=== PATIENT | male | born 1960 | race Caucasian/White ===

== ENCOUNTER 2017-10-31 08:12 | Inpatient (IN) | payer OTHER ==
[2017-10-31 09:39] LABS: Lactic Acid 1.7 mmol/L (0.5-2.2)
[2017-10-31 09:45] LABS: ALT (SGPT) 163 U/L (8-55); AST (SGOT) 347 U/L (5-34); Albumin 2.4 g/dL (3.5-5.0); Alkaline Phosphatase 282 U/L (40-150); Anion Gap 13 mmol/L (10-20); BUN (Urea Nitrogen) 23 mg/dL (8.4-25.7); Calc. Creatinine Clearance 0 mL/min (70-130); Calcium 8.1 mg/dL (7.8-10.44); Carbon Dioxide 17 mmol/L (22-29); Chloride 108 mmol/L (98-107); Estimated GFR-MDRD 59; Globulin 3.7 g/dL (2.4-3.5); Glucose 104 mg/dL (70-105); Protein, Total 6.1 g/dL (6.0-8.3); Sodium 133 mmol/L (136-145)
[2017-10-31 09:49] LABS: #Eosinphils 0.1 thou/uL (0.0-0.7); #Lymphocytes 0.5 thou/uL (1.20-3.40); #Monocytes 0.4 thou/uL (0.11-0.59); #Neutrophils 3.1 thou/uL (1.40-6.50); %Basophils 1.1 % (0.0-1.0); %Eosinophils 1.9 % (0.0-10.0); %Lymphocytes 12.5 % (21.0-51.0); %Monocytes 9.1 % (0.0-10.0); %Neutrophils 75.5 % (42.0-75.0); Hemoglobin 12.9 g/dL (14.0-18.0); Mean Corpuscular HGB CONC 32.7 g/dL (32.0-36.0); Mean Corpuscular Hemoglobin 33.2 pg (27.0-31.0); Mean Platelet Volume 8.1 fL (7.4-10.4); PLT Morphology Comment Appears Decreased; Platelet Count 92 thou/uL (130-400); RBC Distribution Width 14.3 % (11.5-14.5); RBC Morphology Normal; White Blood Cell (WBC) Count 4.1 thou/uL (4.8-10.8)
[2017-10-31 09:52] LABS: Troponin I Less than 0.010 ng/mL (< 0.028)
[2017-10-31] MEDS ORDERED: HumaLOG 300 UNITS/3 ML VIAL SC PRN (10:20)
[2017-10-31] MEDS ORDERED: Dextrose 5% in Water 1,000 ML IV PRN (10:20)
[2017-10-31] MEDS ORDERED: Dextrose 50% Abboject 50 ML SYRINGE SLOW IVP PRN (10:20)
[2017-10-31 13:10] LABS: Troponin I Less than 0.010 ng/mL (< 0.028)
--- NOTE | 2017-10-31 14:25 | HP ---
CHIEF COMPLAINT: Chest pain. HISTORY OF PRESENT ILLNESS: The patient is a very pleasant 57-year-old male who is an inmate who nor wyatt goes to [facility] for his treatments who presented to the hospital with chest pain. The patient sta francie that he has been having on and off chest pain; however, for the past 4 days, his chest pain has w orsened. The patient also has been complaining of some generalized abdominal pain. Denies any fever s or chills. Denies any diarrhea. The patient states that he recently had a CAT scan at [facility]; [facility], does not recall the results. The patient initially was taken to an outside facility and then was transferred here since there were no beds at [facility]. Patient had initial lab work done which indicate d elevated bilirubin of 11 and elevated LFTs. The patient also appeared to have jaundice, so he unde rwent a CT abdomen and pelvis with contrast that indicated several liver lesions and also some pulmon federica lesions. Patient also was noted to have some varicosities and also was noted to have a necrotic fat around his hernia in his abdomen. The patient stated that his symptoms have been ongoing for a w hile; however, for the past 4 days, the symptoms have gotten worse. PAST MEDICAL HISTORY: 1. History of diabetes; history of hepatitis C, unknown source; he has a history of IV drug use; he has also had blood transfusion and he also has tattoos. 2. Hypertension. 3. Cirrhosis. PAST SURGICAL HISTORY: The patient says he has had some surgery in his left arm for a work accident related and he has had several cervical and back surgeries and he has had a cyst that was removed fro m his abdomen. SOCIAL HISTORY: The patient used to smoke cigars occasionally; however, has not smoked anything for the past 4 years. Alcohol use; he used to drink alcohol heavily in the past; however, currently does not drink any alcohol. He also has a history of cocaine use; however, currently does not. FAMILY HISTORY: The patient states that his mother at age of 67, she is a dialysis patient and also had cardiac problems, but he does have living sisters. MEDICATIONS: As of the following; patient is on lactulose. I do not have the exact doses, but he is on lactulose, lisinopril, metformin, nitro and spironolactone. Cardiac newby, the patient has never had any echo or any stress test or any cardiac catheterization. PHYSICAL EXAMINATION: VITAL SIGNS: Temperature of 98.8, blood pressure was 100/60, heart rate was in the 80s-90s and he is 98% on room air. GENERAL: He is awake, alert, appears jaundiced. HEENT: Normocephalic, atraumatic. He does have significant jaundice in his conjunctival area. LUNGS: Clear to auscultation. No rhonchi or wheezes noted. CHEST: S1 and S2 present. No murmurs, rubs or gallops. Chest wall; patient has significant pain up on palpation to his right-sided chest wall and also left-sided chest wall upon palpation. ABDOMEN: Soft, mildly distended. He does have an umbilical hernia. He does have significant pain u dara palpation of his right upper quadrant and also right lower and left lower quadrant. I am unable to feel any hepatomegaly or splenomegaly. EXTREMITIES: He has got mild 1+ lower extremity edema. SKIN: He appears very jaundiced. No petechial rashes were noted. NEUROLOGIC: Neurovascular newby, no focal deficits were noted. LABORATORY DATA AND IMAGING DATA: Laboratory results are as of following: WBC 4.1, hemoglobin of 12 .9, hematocrit of 39.6, platelets of 92. He did have chemistry; sodium of 133, potassium of 5.0, BUN of 22, creatinine 1.26. His bilirubin is 11, AST of 347, ALT of 157, alkaline phosphatase of 282. His INR at the outside hospital was 1.5. His troponin x3 were negative. Lactic acid was 1.7. He di d have an EKG done which did show some Q-waves in II, III, and AVF however, no T-wave inversions were noted. ASSESSMENT AND PLAN: The patient is a very pleasant 57-year-old male who presents to the hospital wi th complaints of chest pain. 1. Atypical chest pain. The patient's troponin x3 were negative. EKG does have some old Q-waves. We will get an echocardiogram for further evaluation. Patient's pain is not substernal. It is very on the sides around his rib area and it is reproducible on palpation. 2. Liver lesions with pulmonary lesions. This could be liver carcinoma given his history of hepatit is C. We will check an alpha fetoprotein. We will check CA 19-9. I did speak with the radiologist for possible biopsy. However, given his significant varicosities, they were hesitant and recommended to do an MRI for further evaluation to know if all the lesions seem to be concerning for malignancy or there were also some liver nodules for better diagnostic purposes. We will go ahead and order an MRI with and without contrast. We will keep patient n.p.o. for now. Also, GI has been consulted for this. 3. Hernia with fat necrosis. Upon speaking with the radiologist, he also mentioned that the patient had significant fat necrosis that was significant around his umbilical hernia and he did have some p ain. He does not have any bowel that is entrapped in it. I will get a surgical consultation just to make sure that it is not something urgent or emergent. 4. Diabetes. We will put the patient on sliding scale insulin. We will hold metformin for now. 5. History of cirrhosis. We will hold off on spironolactone and the lactulose for now. The patient normally runs low blood pressure according to him; however, his maps have been greater than 65. The re are no signs of infections and also we will get records from [facility] for further evaluation. 6. Elevated LFTs including bilirubin. This is most likely secondary to his underlying liver disease . Also, the patient stated that he did have a recent CAT scan at [facility]. We will await results. 7. Deep venous thrombosis prophylaxis. We will put the patient on sequential compression devices.
[2017-10-31] MEDS: Dextrose 5 % And 0.9 % NaCl 1,000 ML IV SCH (14:27)
[2017-10-31] MEDS ORDERED: Heparin 5,000 UNITS/ML VIAL SC SCH (15:00)
[2017-10-31 15:24] LABS: INR-International Normal Ratio 1.3; Prothrombin Time 16.1 SEC (12.0-14.7)
[2017-10-31 15:25] LABS: PTT 34.4 SEC (22.9-36.1)
[2017-10-31 15:42] LABS: CKMB 0.8 ng/mL (0-6.6); Troponin I Less than 0.010 ng/mL (< 0.028)
--- NOTE | 2017-10-31 16:05 | HP ---
Christopher Pascual is a prisoner, 5 years incarcerated, presents to the emergency room with chest pain, acc ompanied by care home guards. Patient apparently had a CAT scan demonstrating a hernia. He has a histo ry of hepatocellular carcinoma with pulmonary mets. He has a history of hepatitis C. Patient denies having any abdominal pain. Denies any nausea or vomiting. A portion of the CAT scan was performed elsewhere, it is not available. MEDICATIONS: Furosemide 20 mg a day, lactulose daily, lisinopril 20 mg daily, metformin 500 mg twice a day, nitroglycerin p.r.n., spironolactone twice a day. PAST MEDICAL HISTORY: Hepatitis C that has never been treated. He states he used to be type 1 diabe kenji, but now has type 2 diabetes. Diagnosis of hepatocellular carcinoma, [facility] I am [facility]. He reports metastasis to the lungs. PAST SURGICAL HISTORY: He had some traumatic injury to his right groin and thigh, requiring a drain for a period of time. SOCIAL HISTORY: Tobacco: None while incarcerated 5 years. No use of tobacco prior to that. Alcoho l abuse prior to incarceration 5 years ago. PHYSICAL EXAMINATION: VITAL SIGNS: Weight 205 pounds, blood pressure 110/79, heart rate 82, respirations 21, temperature 9 7.8 degrees. GENERAL: The patient is in shackles. HEAD, EARS, EYES, NOSE, AND THROAT: Unremarkable. LUNGS: Clear to auscultation. CARDIAC: Regular rate and rhythm without murmur, rub, or gallop. ABDOMEN: Soft. Fluid wave. Umbilical hernia present, easily reducible. EXTREMITIES: Palpable pedal pulses. LABORATORY DATA: White count 4, hemoglobin 12. Sodium 133, chloride 108, carbon dioxide 17, bilirub in of 11, AST 347, ALT 163, alkaline phosphatase 282. ASSESSMENT AND PLAN: Umbilical hernia. This is reducible. This is not the source of any discomfort . I do not think the patient needs further evaluation for this hernia. There is no indication for s urgical intervention. Patient has hepatitis C, hepatocellular carcinoma history, metastasis to the l angela, ascites on exam, and his jaundice. I would recommend checking coagulation studies and alpha fet oprotein. I will follow him with you. There is no indication for surgical intervention at this time .
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
[2017-10-31] MEDS: hydrOXYzine 25 MG TAB PO PRN (18:39)
[2017-10-31] MEDS: Famotidine 20 MG TAB PO SCH (19:52)
[2017-10-31] MEDS: Docusate 100 MG CAP PO SCH (19:53)
[2017-11-01] MEDS: Dextrose 5 % And 0.9 % NaCl 1,000 ML IV SCH ×3 (04:40→17:44)
[2017-11-01 05:25] LABS: ALT (SGPT) 160 U/L (8-55); AST (SGOT) 316 U/L (5-34); Albumin 2.3 g/dL (3.5-5.0); Alkaline Phosphatase 262 U/L (40-150); Anion Gap 9 mmol/L (10-20); BUN (Urea Nitrogen) 16 mg/dL (8.4-25.7); Calc. Creatinine Clearance 101 mL/min (70-130); Calcium 8.1 mg/dL (7.8-10.44); Carbon Dioxide 19 mmol/L (22-29); Chloride 109 mmol/L (98-107); Estimated GFR-MDRD 69; Globulin 3.5 g/dL (2.4-3.5); Glucose 142 mg/dL (70-105); Potassium 4.3 mmol/L (3.5-5.1); Protein, Total 5.8 g/dL (6.0-8.3); Sodium 133 mmol/L (136-145)
[2017-11-01 05:33] LABS: #Eosinphils 0.1 thou/uL (0.0-0.7); #Lymphocytes 0.5 thou/uL (1.20-3.40); #Monocytes 0.6 thou/uL (0.11-0.59); #Neutrophils 3.4 thou/uL (1.40-6.50); %Basophils 0.3 % (0.0-1.0); %Eosinophils 2.3 % (0.0-10.0); %Lymphocytes 11.5 % (21.0-51.0); %Monocytes 12.9 % (0.0-10.0); Hemoglobin 12.6 g/dL (14.0-18.0); Mean Corpuscular HGB CONC 32.9 g/dL (32.0-36.0); Mean Corpuscular Hemoglobin 33.4 pg (27.0-31.0); Mean Platelet Volume 9.2 fL (7.4-10.4); Platelet Count 87 thou/uL (130-400); RBC Distribution Width 14.3 % (11.5-14.5); Red Blood Cell (RBC) Count 3.77 mill/uL (4.70-6.10); White Blood Cell (WBC) Count 4.7 thou/uL (4.8-10.8)
[2017-11-01] MEDS: Famotidine 20 MG TAB PO SCH ×2 (08:14→20:04)
[2017-11-01] MEDS: Docusate 100 MG CAP PO SCH ×2 (08:14→20:03)
[2017-11-01] MEDS: hydrOXYzine 25 MG TAB PO PRN ×3 (08:14→20:06)
[2017-11-01] MEDS ORDERED: Prevnar 13-Val Conj/PF 0.5 ML SYRINGE IM ONE (09:00)
--- NOTE | 2017-11-01 09:01 | PRG ---
DATE OF SERVICE: 11/01/2017 SUBJECTIVE: The patient complaining of chest and abdominal pain. He is also hungry and wants to eat . OBJECTIVE: VITAL SIGNS: Temperature 99.7, pulse 89, respiratory rate 20, blood pressure 102/55. CHEST: Clear. CARDIOVASCULAR: Regular rate and rhythm. ABDOMEN: Soft, nontender, without organomegaly or masses. LABORATORY DATA: Significant for sodium of 133, CO2 19, glucose 142, total bilirubin 12, AST 316, AL T 160, alkaline phosphatase 262, albumin 23, alpha fetoprotein is 25,830. ASSESSMENT: 1. Metastatic hepatocellular carcinoma. 2. Cirrhosis. 3. Hepatitis C. RECOMMENDATIONS: 1. Oncology opinion. 2. At this point, I do not think there is any need for the MRI scheduled today so I will cancel that .
[2017-11-01] MEDS: oxyCODONE 5 MG TAB PO PRN ×3 (10:18→20:04)
--- NOTE | 2017-11-01 11:35 | PDOC.PN ---
- Subjective Encounter Start Date: 11/01/17 Encounter Start Time: 10:00 Subjective: pt up in bed compalins of chest pain to his sides - Objective Resuscitation Status: Resuscitation Status FULL:Full Resuscitation Vital Signs & Weight: Vital Signs (12 hours) Temp Pulse Resp BP Pulse Ox 11/01/17 08:00 98.1 F 86 20 100/59 L 95 11/01/17 04:00 99.7 F H 89 20 102/55 L 94 L 11/01/17 00:00 20 Weight Weight 207 lb 3.2 oz I&O: 10/31/17 11/01/17 11/02/17 06:59 06:59 06:59 Intake Total 2235 Output Total 1325 300 Balance 910 -300 Result Diagrams: 11/01/17 04:20 11/01/17 04:19 Additional Labs: Accuchecks 11/01/17 11/01/17 10/31/17 10:47 05:57 20:58 POC Glucose 194 H 135 H 164 H 10/31/17 16:56 POC Glucose 107 Phys Exam - Physical Examination icteric sclera, pt appears jaundice Neck: no nodes, no JVD, supple, full ROM Respiratory: no wheezing, no rales, no rhonchi, wheezing present, clear to auscultation bilateral Cardiovascular: RRR, no significant murmur, no rub, gallop, irregular pain on palpation of chest wall Gastrointestinal: soft, non-tender, no distention, positive bowel sounds Dx/Plan (1) Atypical chest pain Code(s): R07.89 - OTHER CHEST PAIN Status: Acute (2) Hepatocellular carcinoma Code(s): C22.0 - LIVER CELL CARCINOMA Status: Acute (3) Elevated bilirubin Code(s): R17 - UNSPECIFIED JAUNDICE Status: Acute (4) Hepatitis C Code(s): B19.20 - UNSPECIFIED VIRAL HEPATITIS C WITHOUT HEPATIC COMA Status: Acute - Plan will get cta chest, trops negative -: oncology consulted. Pt's AFP is elevated -: spoke with pt about next of kin and he said sister -: will ask guard to get info. Palliative consulted. -: will start pt on po pain meds * . Review of Systems - Review of Systems Cardiovascular: chest pain Gastrointestinal: negative: Nausea, Vomiting, Abdominal Pain, Diarrhea, Constipation, Melena, Hematochezia, Other Genitourinary: negative: Dysuria, Frequency, Incontinence, Hematuria, Retention , Other - Medications/Allergies Allergies/Adverse Reactions: Allergies Allergy/AdvReac Type Severity Reaction Status Date / Time Iodine and Iodide Containing Allergy Itch Verified 10/31/17 12:11 Produc Medications: Current Medications Dextrose/Water (Dextrose 50%) 25 gm SLOW IVP PRN PRN PRN Reason: Hypoglycemia Docusate Sodium (Colace) 100 mg PO BID [facility] Last Admin: 11/01/17 08:14 Dose: Not Given Famotidine (Pepcid) 20 mg PO BID [facility] Last Admin: 11/01/17 08:14 Dose: 20 mg Glucagon (Glucagon) 1 mg IM PRN PRN PRN Reason: Hypoglycemia Hydroxyzine HCl (Atarax) 25 mg PO TID PRN PRN Reason: Itching Last Admin: 11/01/17 08:14 Dose: 25 mg Dextrose/Water (D5w) 1,000 mls @ 0 mls/hr IV .Q0M PRN PRN Reason: Hypoglycemia Dextrose/Sodium Chloride (D5 0.9% Ns) 1,000 mls @ 75 mls/hr IV .[id number] [facility] Last Admin: 11/01/17 04:40 Dose: 1,000 mls Insulin Human Lispro (Humalog) 0 units SC .MILD SLIDING SCALE PRN PRN Reason: Mild Correctional Scale Oxycodone HCl (Oxycodone Ir) 5 mg PO Q4H PRN PRN Reason: Pain Last Admin: 11/01/17 10:18 Dose: 5 mg Sodium Chloride (Flush - Normal Saline) 10 ml IVF Q12HR [facility] Sodium Chloride (Flush - Normal Saline) 10 ml IVF PRN PRN PRN Reason: Saline Flush
[2017-11-01 12:52] VITALS: BMI 31.5
--- NOTE | 2017-11-01 13:35 | CON ---
DATE OF CONSULTATION: 11/01/2017 REASON FOR CONSULTATION: Suspicion of liver cancer. HISTORY OF PRESENT ILLNESS: A 57-year-old male with history of hepatitis C and cirrhosis, currently an inmate, presenting with chest pain that has been on and off and worsening for the past few days. The patient also complains of generalized abdominal pain and worsening fatigue. He spends most of his days in his cell in bed reading, though he does say he tries to do very, very light workouts in his cell. He states he has not noticed himself with worsening jaundice. He does note occasional coughing up or spitting up of blood in small amounts. He states his abdomen has been swelling and is very concerned about a hernia in his abdomen that is causing him pain. The patient states he was first diagnosed with hepatitis C and cirrhosis at age 26 which he believes he got from tattoos. He states he used IV heroin to help with the pain , but he did not use this until after he was diagnosed with hepatitis C. PAST MEDICAL HISTORY: Hepatitis C, cirrhosis, IV drug abuse, hypertension. PAST SURGICAL HISTORY: Left arm surgery, cervical and back surgeries in the past and a cyst removal from his abdomen. SOCIAL HISTORY: Former cigar smoker, former heavy alcohol abuse. Former cocaine and heroin abuse. FAMILY HISTORY: Kidney disease in mother. MEDICATIONS: Reviewed. PHYSICAL EXAMINATION: VITAL SIGNS: Temperature 98.1, pulse 86, respirations 20, satting 95% on room air, and blood pressure 100/59. GENERAL: The patient is lying in bed in no acute distress. HEENT: Normocephalic, atraumatic. Scleral icterus present. LUNGS: Clear to auscultation. CARDIOVASCULAR: Normal S1, S2, without murmurs, rubs or gallops. ABDOMEN: Soft with mild distention and some ascites with mild tenderness to palpation diffusely. EXTREMITIES: Mild swelling in bilateral lower extremities. SKIN: Diffuse jaundice. NEUROLOGIC: Nonfocal. PSYCHIATRIC: Awake, alert and oriented x3. Appears sad and anxious. LABORATORY DATA: White blood cells 4.7, hemoglobin 12.6, MCV 102, platelets 87. PT 16.1, INR 1.3, PTT 34.4. Sodium 133, BUN 16, creatinine 1.1, total bilirubin 12.0, AST 316, ALT 160, alkaline phosphatase 262. Troponin negative x2. Albumin 2.3. Alpha fetoprotein 25,830.5, CA 19-9 antigen 79. IMAGING DATA: Previous CT scan showed numerous bilateral lung nodules suggestive of metastatic disease along with a subcentimeter borderline mediastinal cardiophrenic and internal mammary lymph nodes. Extensive esophageal varices. CT abdomen and pelvis showed findings consistent with diffuse infiltrate of hepatocellular carcinoma, replacing most of the liver parenchyma along with cirrhosis with gastroesophageal varices, splenomegaly, large splenic varices and splenorenal shunt, tumor thrombus in the portal vein and branches were appreciable with cavernous transformation of the portal venous system. Large ventral abdominal hernia containing significant stranding unchanged, bland thrombus in the superior mesenteric vein branch. Cholelithiasis, numerous pulmonary nodules. ASSESSMENT AND PLAN: A 57-year-old male with longstanding history of cirrhosis secondary to untreated hepatitis C, presenting with chest pain, abdominal pain, and significantly worsening performance status and found to have hepatocellular carcinoma metastatic to lungs and lymph nodes with tumor thrombus. The patient's CT scan is suggestive of HCC, which in the setting of cirrhosis and extremely elevated AFP confirms the diagnosis and a biopsy is not necessary. The patient has stage 4 HCC and has end-stage cirrhosis Child-Medina C. The two first line treatments for advanced HCC include sorafenib and Lenvatinib. Sorafenib is only given to patients with Child-Medina A and possibly B disease, but not C. Lenvatinib is an option at a lower dosing and when compared to sorafenib in a head to head phase 3 trial it was noninferior and better tolerated. This would be the only option for treatment for Mr. Pascual. The patient's performance status is ECOG 2, possibly 3. I would recommend a trial of Lenvatinib if he is able to get this within the long-term system. If he is unable to get this treatment, then would recommend hospice. We will sign off. Thank you for this consult. [facility]
[2017-11-02] MEDS: oxyCODONE 5 MG TAB PO PRN ×3 (02:17→20:44)
[2017-11-02] MEDS: Dextrose 5 % And 0.9 % NaCl 1,000 ML IV SCH ×2 (06:01→20:52)
[2017-11-02] MEDS: hydrOXYzine 25 MG TAB PO PRN (08:18)
[2017-11-02] MEDS: Docusate 100 MG CAP PO SCH ×2 (08:18→20:44)
[2017-11-02] MEDS: Famotidine 20 MG TAB PO SCH ×2 (08:18→20:44)
[2017-11-02] MEDS ORDERED: diphenhydrAMINE 50 MG/ML VIAL IVP PRN (09:58)
[2017-11-02] MEDS: hydrOXYzine 25 MG TAB PO SCH ×2 (15:11→20:47)
--- NOTE | 2017-11-02 16:46 | PDOC.PN ---
- Subjective Encounter Start Date: 11/02/17 Encounter Start Time: 07:20 Pt seen for followup re: hepatocellular carcinoma. Reports itching, no chest pain. - Objective Resuscitation Status: Resuscitation Status FULL:Full Resuscitation MAR Reviewed: Yes Vital Signs & Weight: Vital Signs (12 hours) Temp Pulse Resp BP Pulse Ox 11/02/17 15:14 98.8 F 98 18 100/53 L 96 11/02/17 12:03 98.0 F 96 17 105/56 L 95 11/02/17 08:13 98.0 F 96 16 104/57 L 97 Weight Admit Weight 207 lb 3.2 oz Weight 207 lb 3.2 oz I&O: 11/01/17 11/02/17 11/03/17 06:59 06:59 06:59 Intake Total 2235 2969 500 Output Total 1325 2450 574 Balance 910 519 -74 Result Diagrams: 11/01/17 04:20 11/01/17 04:19 Additional Labs: Accuchecks 11/02/17 11/02/17 11/01/17 11:06 05:23 20:18 POC Glucose 121 H 107 190 H 11/01/17 16:55 POC Glucose 117 H EKG Reviewed by me: Yes (Tele: NSR) Phys Exam - Physical Examination Constitutional: NAD HEENT: moist MMs, oral pharynx no lesions, 2+ tonsils scleral icterus Neck: no nodes, no JVD, supple, full ROM Respiratory: no wheezing, no rales, no rhonchi, clear to auscultation bilateral Cardiovascular: RRR, no rub S1, S2 Gastrointestinal: soft, non-tender, no distention, positive bowel sounds umbilical hernia Neurological: moves all 4 limbs Psychiatric: normal affect Deviation from normal: Oriented to person andplace, not to time Dx/Plan (1) Hepatocellular carcinoma Code(s): C22.0 - LIVER CELL CARCINOMA Status: Acute Comment: Stage 4. Awaiting transfer to [facility], will need treatment with levatinib. (2) Itching Code(s): L29.9 - PRURITUS, UNSPECIFIED Status: Acute (3) Abnormal LFTs Code(s): R94.5 - ABNORMAL RESULTS OF LIVER FUNCTION STUDIES Status: Acute Comment: repeat blood work tomorrow (4) Hepatitis C Code(s): B19.20 - UNSPECIFIED VIRAL HEPATITIS C WITHOUT HEPATIC COMA Status: Chronic Qualifiers: Viral hepatitis chronicity: chronic (5) Atypical chest pain Code(s): R07.89 - OTHER CHEST PAIN Status: Resolved Comment: Improved - Plan * . Review of Systems - Review of Systems Constitutional: weakness, other (itching). negative: fever, chills, sweats, malaise Respiratory: negative: Cough, Shortness of Breath, SOB with Excertion, Pleuritic Pain, Wheezing Cardiovascular: negative: chest pain, palpitations, orthopnea, paroxysmal nocturnal dyspnea, edema, light headedness Gastrointestinal: negative: Nausea, Vomiting, Abdominal Pain, Diarrhea, Constipation, Melena, Hematochezia Genitourinary: negative: Dysuria, Frequency, Incontinence, Hematuria, Retention Skin: Other (itching) Neurological: Weakness. negative: Numbness, Incoordination, Change in Speech, Confusion, Seizures - Medications/Allergies Allergies/Adverse Reactions: Allergies Allergy/AdvReac Type Severity Reaction Status Date / Time Iodine and Iodide Containing Allergy Itch Verified 10/31/17 12:11 Produc Medications: Current Medications Dextrose/Water (Dextrose 50%) 25 gm SLOW IVP PRN PRN PRN Reason: Hypoglycemia Diphenhydramine HCl (Benadryl) 25 mg IVP Q8H PRN PRN Reason: Itching Docusate Sodium (Colace) 100 mg PO BID [facility] Last Admin: 11/02/17 08:18 Dose: 100 mg Famotidine (Pepcid) 20 mg PO BID [facility] Last Admin: 11/02/17 08:18 Dose: 20 mg Glucagon (Glucagon) 1 mg IM PRN PRN PRN Reason: Hypoglycemia Hydroxyzine HCl (Atarax) 25 mg PO TID [facility] Last Admin: 11/02/17 15:11 Dose: 25 mg Dextrose/Water (D5w) 1,000 mls @ 0 mls/hr IV .Q0M PRN PRN Reason: Hypoglycemia Dextrose/Sodium Chloride (D5 0.9% Ns) 1,000 mls @ 75 mls/hr IV .[id number] [facility] Last Admin: 11/02/17 06:01 Dose: 1,000 mls Insulin Human Lispro (Humalog) 0 units SC .MILD SLIDING SCALE PRN PRN Reason: Mild Correctional Scale Oxycodone HCl (Oxycodone Ir) 5 mg PO Q4H PRN PRN Reason: Pain Last Admin: 11/02/17 08:18 Dose: 5 mg Sodium Chloride (Flush - Normal Saline) 10 ml IVF Q12HR [facility] Last Admin: 11/02/17 15:11 Dose: 10 ml Sodium Chloride (Flush - Normal Saline) 10 ml IVF PRN PRN PRN Reason: Saline Flush
[2017-11-03] MEDS: oxyCODONE 5 MG TAB PO PRN ×4 (02:18→20:28)
[2017-11-03] MEDS ORDERED: diphenhydrAMINE 25 MG CAP PO PRN (03:46)
[2017-11-03] MEDS: Docusate 100 MG CAP PO SCH ×2 (09:24→20:21)
[2017-11-03] MEDS: hydrOXYzine 25 MG TAB PO SCH ×4 (09:25→20:21)
[2017-11-03] MEDS: Famotidine 20 MG TAB PO SCH ×2 (09:25→20:22)
[2017-11-03] MEDS: Dextrose 5 % And 0.9 % NaCl 1,000 ML IV SCH (10:50)
[2017-11-03] MEDS ORDERED: diphenhydrAMINE 50 MG/ML VIAL IVP SCH (11:30)
--- NOTE | 2017-11-03 11:32 | PDOC.PN ---
- Subjective Encounter Start Date: 11/03/17 Encounter Start Time: 07:40 Pt seen for followup re: hepatocellular cancer. Denies chest pain. Pruritus still present. Did not sleep well. - Objective Resuscitation Status: Resuscitation Status FULL:Full Resuscitation MAR Reviewed: Yes Vital Signs & Weight: Vital Signs (12 hours) Temp Pulse Resp BP Pulse Ox 11/03/17 07:37 98.2 F 102 H 17 114/61 97 11/03/17 04:00 98.3 F 99 16 106/65 95 Weight Admit Weight 207 lb 3.2 oz Weight 207 lb 3.2 oz I&O: 11/02/17 11/03/17 11/04/17 06:59 06:59 06:59 Intake Total 2969 2870 Output Total 2450 2189 Balance 519 681 Result Diagrams: 11/01/17 04:20 11/01/17 04:19 Additional Labs: Accuchecks 11/03/17 11/03/17 11/02/17 10:50 05:48 20:40 POC Glucose 138 H 106 145 H 11/02/17 11/02/17 16:54 11:06 POC Glucose 116 H 121 H EKG Reviewed by me: Yes (Tele: NSR) Phys Exam - Physical Examination Constitutional: NAD HEENT: moist MMs sclerae icteric Neck: supple Respiratory: clear to auscultation bilateral Cardiovascular: RRR Gastrointestinal: soft Neurological: moves all 4 limbs Psychiatric: normal affect Deviation from normal: cutaneous icterus Dx/Plan (1) Hepatocellular carcinoma Code(s): C22.0 - LIVER CELL CARCINOMA Status: Acute Comment: Waiting for a bed at [facility], will need treatment with levatinib. (2) Itching Code(s): L29.9 - PRURITUS, UNSPECIFIED Status: Acute Comment: Increase frequency of Atarax (3) Abnormal LFTs Code(s): R94.5 - ABNORMAL RESULTS OF LIVER FUNCTION STUDIES Status: Acute Comment: check labs today (4) Hepatitis C Code(s): B19.20 - UNSPECIFIED VIRAL HEPATITIS C WITHOUT HEPATIC COMA Status: Chronic Qualifiers: Viral hepatitis chronicity: chronic Comment: now has HCC (5) Atypical chest pain Code(s): R07.89 - OTHER CHEST PAIN Status: Resolved Comment: Improved - Plan * . Review of Systems - Medications/Allergies Allergies/Adverse Reactions: Allergies Allergy/AdvReac Type Severity Reaction Status Date / Time Iodine and Iodide Containing Allergy Itch Verified 10/31/17 12:11 Produc Medications: Current Medications Dextrose/Water (Dextrose 50%) 25 gm SLOW IVP PRN PRN PRN Reason: Hypoglycemia Diphenhydramine HCl (Benadryl) 50 mg IVP ONE [facility] Docusate Sodium (Colace) 100 mg PO BID [facility] Last Admin: 11/03/17 09:24 Dose: 100 mg Famotidine (Pepcid) 20 mg PO BID [facility] Last Admin: 11/03/17 09:25 Dose: 20 mg Glucagon (Glucagon) 1 mg IM PRN PRN PRN Reason: Hypoglycemia Hydroxyzine HCl (Atarax) 25 mg PO QID [facility] Dextrose/Water (D5w) 1,000 mls @ 0 mls/hr IV .Q0M PRN PRN Reason: Hypoglycemia Dextrose/Sodium Chloride (D5 0.9% Ns) 1,000 mls @ 75 mls/hr IV .[id number] [facility] Last Admin: 11/03/17 10:50 Dose: 1,000 mls Insulin Human Lispro (Humalog) 0 units SC .MILD SLIDING SCALE PRN PRN Reason: Mild Correctional Scale Oxycodone HCl (Oxycodone Ir) 5 mg PO Q4H PRN PRN Reason: Pain Last Admin: 11/03/17 09:25 Dose: 5 mg Sodium Chloride (Flush - Normal Saline) 10 ml IVF Q12HR [facility] Last Admin: 11/02/17 22:56 Dose: Not Given Sodium Chloride (Flush - Normal Saline) 10 ml IVF PRN PRN PRN Reason: Saline Flush
[2017-11-03 14:13] LABS: #Eosinphils 0.2 thou/uL (0.0-0.7); #Lymphocytes 0.5 thou/uL (1.20-3.40); #Monocytes 0.6 thou/uL (0.11-0.59); #Neutrophils 4.4 thou/uL (1.40-6.50); %Basophils 0.7 % (0.0-1.0); %Eosinophils 3.5 % (0.0-10.0); %Lymphocytes 8.5 % (21.0-51.0); %Monocytes 10.9 % (0.0-10.0); %Neutrophils 76.4 % (42.0-75.0); Hemoglobin 12.3 g/dL (14.0-18.0); Mean Corpuscular HGB CONC 32.8 g/dL (32.0-36.0); Mean Corpuscular Hemoglobin 33.2 pg (27.0-31.0); Mean Platelet Volume 9.3 fL (7.4-10.4); Platelet Count 93 thou/uL (130-400); RBC Distribution Width 14.6 % (11.5-14.5); Red Blood Cell (RBC) Count 3.72 mill/uL (4.70-6.10); White Blood Cell (WBC) Count 5.8 thou/uL (4.8-10.8)
[2017-11-03 14:25] LABS: ALT (SGPT) 114 U/L (8-55); AST (SGOT) 202 U/L (5-34); Albumin 2.3 g/dL (3.5-5.0); Alkaline Phosphatase 226 U/L (40-150); Anion Gap 12 mmol/L (10-20); BUN (Urea Nitrogen) 11 mg/dL (8.4-25.7); Bilirubin, Total 19.1 mg/dL (0.2-1.2); Calc. Creatinine Clearance 131 mL/min (70-130); Calcium 7.8 mg/dL (7.8-10.44); Carbon Dioxide 15 mmol/L (22-29); Chloride 108 mmol/L (98-107); Estimated GFR-MDRD Greater than 90; Globulin 3.7 g/dL (2.4-3.5); Glucose 175 mg/dL (70-105); Potassium 3.8 mmol/L (3.5-5.1); Sodium 131 mmol/L (136-145)
--- NOTE | 2017-11-03 18:56 | DIS ---
DATE OF ADMISSION: 10/31/2017 DATE OF DISCHARGE: 11/03/2017 PRIMARY CARE PROVIDER: Unknown. DISCHARGE DIAGNOSES: 1. Hepatocellular carcinoma. 2. Abnormal liver function tests. 3. Pruritus. CONSULTATION DURING THIS HOSPITALIZATION: General surgery, Dr. Giovanny Sorto; Gastroenterology, Dr. Nate Leija; and Oncology, Dr. Gonzalo Owen. CONDITION OF PATIENT ON THE DAY OF DISCHARGE: Stable. I assessed Mr. Pascual on the day of discharge. Please refer to my history and physical note for further details of this [id number] encounter. Today afternoon, he expressed some suicidal ideation. However, I reassessed him shortly before dictating this discharge summary. He denies any suicidal ideation or homicidal ideation. DISCHARGE MEDICATIONS: Lactulose 30 mL 2 times a day, metformin 1000 mg 2 times a day, spironolactone 25 mg 2 times a day, Colace 100 mg 2 times a day, Lasix 40 mg daily, hydroxyzine 25 mg 4 times a day, lisinopril 2.5 mg daily, and oxycodone IR 5 mg every 4 hours as needed. HOSPITAL COURSE: Mr. Pascual is a pleasant 57-year-old gentleman who was admitted to [facility] on 10/31/2017 as a transfer from [place] since there were no beds at [facility], where he usually receives his medical care. Please refer to Dr. Henson's history and physical note dated for further details. He was seen by General Surgery Service on 2017 regarding umbilical hernia. There was no indication for surgical intervention. He was also seen by Gastroenterology Service and Medical Oncology Service. CT scan from [place] was reviewed. According to Oncology Service, the patient's CT scan is suggestive of hepatocellular carcinoma, in the setting of cirrhosis and extremely elevated AFP confirms the diagnosis and the biopsy is not necessary. Patient had an elevated alpha fetoprotein level of 25,830.5. Oncology Service recommended a trial of lenvatinib if he is able to get this within the [facility] system. They recommended hospice service if he is unable to get this treatment. Mr. Pascual's LFTs continued to worsen. Contact was made with the [facility] for transfer of the patient to [facility]. He was approved for transfer on 11/02/2017. A bed became available on 11/03/2017. He is being discharged to [facility] for further care. On the day of discharge, he has sodium 131, potassium 3.8, creatinine 0.84, total bilirubin 19.1, AST 202, ALT 114, alkaline phosphatase is 226, and albumin 2.3. His white count is 5800, hemoglobin 12.3, and platelet count 93, 000. His CA 19-9 antigen level was elevated at 79 during this hospitalization. As mentioned earlier, Mr. Pascual at this time hemodynamically stable for discharge. He also denies any suicidal or homicidal ideation. He will be transferred to [facility] when transportation is available. DISCHARGE DESTINATION: [facility]. TOTAL AMOUNT OF TIME SPENT COORDINATING THIS DISCHARGE: 33 minutes. Please note that he had a 2D echocardiogram during this hospitalization, which showed normal left ventricular size, left ventricular ejection fraction of 60%- 65%, mildly enlarged right ventricle cavity, moderately dilated left atrium, aortic valve sclerosis, no significant stenosis, mild tricuspid regurgitation and normal pulmonary artery pressure. MARY
[2017-11-03 19:52] VITALS: BP 115/63; TEMP 98.1
== END 2017-11-03 21:21 | disposition short-term general hospital (02) | DRG 436 ==
LOC: ERS 08:12 → 2NO 10:19
PROVIDERS: ADMIT Internal Medicine; ATTEND Internal Medicine
DX: C22.0 Liver cell carcinoma (principal); C78.00 Secondary malignant neoplasm of unspecified lung; R18.8 Other ascites; Z86.19 Personal history of other infectious and parasitic diseases; Z79.84 Long term (current) use of oral hypoglycemic drugs; E11.9 Type 2 diabetes mellitus without complications; K42.9 Umbilical hernia without obstruction or gangrene; I10 Essential (primary) hypertension; Z87.891 Personal history of nicotine dependence; L29.9 Pruritus, unspecified
CPT/HCPCS: 36415; 36416; 80053; 82105; 82553; 83605; 84484; 85025; 85610; 85730; 86301; 90471; 90670; 93005; 93306; 96360; A4216; G0009; J1200